=== PATIENT | female | born 1970 | race Caucasian/White ===

== ENCOUNTER → 2016-05-19 | Outpatient (CLI) | payer OTHER ==
--- NOTE | 2016-05-19 11:37 | KCIC ---
PROCEDURE Orbit radiographs HISTORY Screen for MRI, history of of around metal fragments FINDINGS Two views of the orbits are submitted. No metallic foreign body is identified in the region of the orbits. IMPRESSION No metallic foreign body is identified in the region of the orbits. Electronically signed by: Stephan Godwin MD (May 19, 2016 11:33:14)
--- NOTE | 2016-05-19 13:21 | KCIC ---
PROCEDURE MR of the right shoulder HISTORY Chronic right shoulder pain. Frequent dislocations. COMPARISON None FINDINGS There is mild motion degradation on some of the sequences Acromioclavicular joint is intact. The supraspinatus and infraspinatus tendon are thickened, with some increased signal compatible with tendinosis. There is some focal low signal at the supraspinatus tendon compatible with calcium hydroxyapatite. Small linear defect at the bursal surface of the anterior supraspinatus footprint measures 50 percent deep and 5 millimeters AP diameter, series 10, image 14, compatible with a small partial tear. No full-thickness rupture. Subscapularis tendinosis without evidence of a high-grade tear. Trace fluid in the subdeltoid bursa. No advanced muscle atrophy. Primary osteoarthritis at the glenohumeral joint with moderate chondromalacia. Degenerative tear of the superior, posterior and inferior labrum. Small posterior paralabral cyst. Biceps tendinosis with high-grade tearing at the bicipital groove entrance. No bone lesion or acute fracture. Severe fatty infiltration of the teres minor muscle. This finding can be associated with chronic denervation cysts is from chronic quadrilateral space syndrome. IMPRESSION 1. Generalized rotator cuff tendinosis. Small partial thickness linear bursal surface tear of the supraspinatus tendon and calcific tendinitis. No full-thickness rotator cuff rupture. 2. Superior, posterior and inferior labrum tear. 3. Primary glenohumeral joint osteoarthritis. 4. Biceps tendinosis with high-grade tearing. Electronically signed by: Nba Linares MD (May 19, 2016 13:20:05)
== END | disposition home or self-care (01) ==
LOC: KCIC MRI 10:43
PROVIDERS: ATTEND Nurse Practitioner Family
DX: G89.29 Other chronic pain (principal); M25.511 Pain in right shoulder; M24.411 Recurrent dislocation, right shoulder; M19.011 Primary osteoarthritis, right shoulder; M75.31 Calcific tendinitis of right shoulder; T15.9 Foreign body on external eye, part unspecified; S46.211A Strain of muscle, fascia and tendon of other parts of biceps, right arm, initial encounter; X58.XXXA Exposure to other specified factors, initial encounter; Y93.89 Activity, other specified; Y92.89 Other specified places as the place of occurrence of the external cause; Y99.8 Other external cause status
CPT/HCPCS: 70030; 73221